=== PATIENT | female | born 1935 | race Caucasian/White ===

== ENCOUNTER 2021-03-13 17:30 | Emergency (ER) | payer MEDICARE, OTHER ==
[2021-03-13 18:27] LABS: BASOPHIL 0.4 % (0-2); EOSINOPHIL 0.6 % (0-7); HCT 44.4 % (37.0-47.0); HGB 14.5 g/dl (12.5-16.0); LYMPHOCYTE 9.1 % (15-48); MCH 29.2 pg (25.0-31.0); MCHC 32.7 g/dL (32.0-36.0); MCV 89.5 fL (78.0-100.0); MONOCYTE 9.9 % (0-12); MPV 10.4 fL (6.0-9.5); NEUTROPHIL 79.7 % (41-80); NRBC 0; PLT 198 K/uL (150-400); RBC 4.96 M/uL (4.20-5.40); RDW 13.1 % (11.5-14.0); WBC 9.6 K/uL (4.0-10.5)
[2021-03-13 18:44] LABS: BUN/CREAT RATIO (CALC) 24.3 RATIO; CREATININE 1.15 mg/dL (0.51-0.95); MAGNESIUM 2.3 mg/dL (1.8-2.4); POTASSIUM 4.6 mmol/L (3.5-5.1)
[2021-03-13] MEDS ORDERED: AUGMENTIN 875-1 EACH PO (21:57)
== END 2021-03-13 22:11 | disposition home or self-care (01) ==
LOC: FER 17:30
PROVIDERS: Nurse Practitioner Family
DX: J18.9 Pneumonia, unspecified organism (principal); I10 Essential (primary) hypertension
CPT/HCPCS: 36415; 71045; 71275; 80048; 83735; 84484; 85025; 85379; 93005; J7040; Q9967